=== PATIENT | female | born 1960 | race Caucasian/White ===

== ENCOUNTER 2016-05-05 15:10 | Emergency (ER) | payer MEDICARE, OTHER ==
[~2016-05-05] VITALS: Ht 147.3 cm; Wt 57.5 kg
[~2016-05-05 15:10] MED LIST: BUTA1CAP PO; CLON0.2T PO; DEPA500T3 PO; HYDR10TA23 PO; LISI40TA PO; METO25TA3 PO; TEGR200T PO
[2016-05-05 15:12] VITALS: BP 188/109; PULSE 119; RESP 18; TEMP 97.8; O2SAT 97
[2016-05-05] MEDS ORDERED: HYDR-3535 PO (15:46)
[2016-05-05] MEDS ORDERED: SODIUM CHLOR 0.9% 1000 ML INJ 1,000 ML IV ONE (15:50)
[2016-05-05 15:54] VITALS: RESP 20; O2SAT 97
--- NOTE | 2016-05-05 15:56 | PD ---
HPI Chief Complaint: Headache Time Seen by Provider: 15:45 Travel History International Travel<30 days: No Contact w/Intl Traveler<30days: No Traveled to known affect area: No History of Present Illness HPI The patient is a 55-year-old female who presents to the emergency department for migraine. The patient has a history of migraines, states she developed right sided headache several days ago. The headache is located in the right side, throbbing, radiates to the right aspect of the neck, and is associated with nausea, vomiting, photophobia, and phonophobia. The patient states this is typical of her migraines. The patient is followed by her primary physician, Dr. Quevedo, for her migraines and takes Lortab on a regular basis. However, the patient ran out of Lortab and her headache progressed. The patient denies any thunderclap quality to the headache and denies any posterior neck pain or stiffness. The patient states she feels "warm", however , denies any fever, chills, or sweats. The patient denies any ocular difficulties besides photophobia. She denies any blurry vision or diplopia. PFSH Past Medical History Anemia: Yes Arthritis: Yes (HANDS) Autoimmune Disease: No Heart Rhythm Problems: No Cancer: No Cardiovascular Problems: Yes (HTN) High Cholesterol: Yes Chest Pain: No Congestive Heart Failure: No Cerebrovascular Accident: No Diminished Hearing: No Endocrine: No Gastrointestinal Disorders: Yes (Hernia repair ) GERD: Yes Genitourinary: No Headaches: Yes Hiatal Hernia: Yes Hypertension: Yes Immune Disorder: No Implanted Vascular Access Dvce: No Musculoskeletal: Yes Neurologic: Yes Psychiatric: No Reproductive: No Respiratory: No Immunizations Current: No Migraines: Yes Pneumonia: Yes Seizures: Yes Ulcer: Yes (3 STOMACH ULCERS) Tetanus Vaccination: > 5 Years PNEUMOCCOCAL Vaccine (Year): 2010 ?: Not Menopausal: Yes : 1 Para: 1 Tubal Ligation: Yes Past Surgical History Abdominal Surgery: Yes ( LEFT INGUINAL HERNIA REPAIR) Appendectomy: Yes Cardiac Surgery: No Section: Yes (x 1) Ear Surgery: No Endocrine Surgery: No Eye Surgery: No Genitourinary Surgery: No Gynecologic Surgery: Yes () Neurologic Surgery: No Oral Surgery: No Pacemaker: No Thoracic Surgery: No Other Surgery: Yes (appendix,,) Social History Alcohol Use: No Tobacco Use: No Substance Use: No Allergies-Medications (Allergen,Severity, Reaction): Coded Allergies: Imitrex (Verified Allergy, Severe, HIVES, 05/05/16) Toradol (Verified Allergy, Severe, HIVES, 05/05/16) Aspirin (Verified Allergy, Mild, AGGRAVATES ULCERS, 05/05/16) Reported Meds & Prescriptions Reported Meds & Active Scripts Active Tegretol (Carbamazepine) 200 Mg Tab 200 Mg PO BID Fioricet (Mdvdjctent-Atcjxoireodnf-Ysgndknl) 50-300-40 Mg Cap 1 Cap PO Q4H PRN Reported Lortab (Hydrocodone-Acetaminophen) 10-325 Mg Tab 1 Tab PO Q6H PRN Depakote ER (Divalproex Sodium) 500 Mg Khalif 500 Mg PO TID Lisinopril 40 Mg Tab 40 Mg PO HS Metoprolol Tartrate 25 Mg Tab 25 Mg PO BID Hydralazine (Hydralazine HCl) 10 Mg Tab 10 Mg PO Q6HR Take with a meal Clonidine (Clonidine HCl) 0.2 Mg Tab 0.2 Mg PO BID Review of Systems Except as stated in HPI: all other systems reviewed are Neg General / Constitutional: No: Fever Eyes: Positive: Photophobia, No: Blurred Vision HENT: Positive: Headaches, Neck Pain (headache that radiates to the right aspect of the neck, denies any posterior neck pain) Cardiovascular: No: Chest Pain or Discomfort Respiratory: No: Shortness of Breath Gastrointestinal: Positive: Nausea, Vomiting Musculoskeletal: No: Weakness Neurologic: Positive: Headache, No: Dizziness, Change in Mentation, Paresthesia, Sensory Disturbance Physical Exam Narrative GENERAL: Awake, alert, pleasant 55-year-old female who appears her stated age and is in no acute respiratory distress. SKIN: Warm and dry. HEAD: Pending hairline noted. EYES: Pupils equal and round. Pupils are 4 mm bilateral and reactive. ENT: No nasal bleeding or discharge. Mucous membranes pink and moist. NECK: Trachea midline. No JVD. CARDIOVASCULAR: Regular, tachycardic with a heart rate of 105. RESPIRATORY: No accessory muscle use. Clear to auscultation. Breath sounds equal bilaterally. GASTROINTESTINAL: Abdomen soft, non-tender, nondistended. No rebound tenderness. MUSCULOSKELETAL: No obvious deformities. No clubbing. No cyanosis. No edema. NEUROLOGICAL: Awake and alert. No obvious cranial nerve deficits. Motor grossly within normal limits. Normal speech. Nonfocal. Oriented 4. Follows commands without difficulty. PSYCHIATRIC: Appropriate mood and affect; insight and judgment normal. Data Data Last Documented VS Vital Signs Date Time Temp Pulse Resp B/P Pulse Ox O2 Delivery O2 Flow Rate FiO2 05/05/16 15:54 20 97 Room Air 05/05/16 15:12 97.8 119 188/109 Orders Ecg Monitoring (05/05/16 15:50) Iv Access Insert/Monitor (05/05/16 15:50) Oximetry (05/05/16 15:50) Sodium Chloride 0.9% Flush (Ns Flush) (05/05/16 16:00) Prochlorperazine Inj (Compazine Inj) (05/05/16 16:00) Diphenhydramine Inj (Benadryl Inj) (05/05/16 16:00) Sodium Chlor 0.9% 1000 Ml Inj (Ns 1000 M (05/05/16 15:50) Morphine Inj (Morphine Inj) (05/05/16 16:00) Valproic Acid (Depakene) (05/05/16 15:50) Methylprednisolone So Succ Inj (Solumedr (05/05/16 16:00) Labetalol Inj (Trandate Inj) (05/05/16 17:00) Hydromorphone Pf Inj (Dilaudid Pf Inj) (05/05/16 17:00) Labs Laboratory Tests Test 05/05/16 16:08 Valproic Acid (Depakene) Level 46 MCG/ML MDM Medical Decision Making Medical Screen Exam Complete: Yes Emergency Medical Condition: Yes Medical Record Reviewed: Yes Interpretation(s) Laboratory Tests Test 05/05/16 16:08 Valproic Acid (Depakene) Level 46 MCG/ML Differential Diagnosis Differential diagnosis includes migraine, tension headache, cluster headache, glaucoma, intracranial hemorrhage, subarachnoid hemorrhage, intracranial tumor, sinusitis, temporal arteritis. Narrative Course IV was established, labs were drawn and sent, and the patient was placed on cardiac telemetry monitoring and continuous pulse oximetry monitoring. The patient was administered Solu-Medrol, Compazine, Benadryl, morphine, Solu-Medrol , and IV fluids. I reviewed the patient's EMR, she had a recent hospitalization and underwent brain MRI which revealed a chronic-appearing collates cyst within the ventricle, cortical atrophy, but no acute findings. The patient has also had multiple CTs in the brain which revealed chronic findings, but no acute hemorrhage. The patient is nonfocal on exam and states that this is her normal migraine headache. Therefore, no further imaging was performed. Depakote level was sent to lab. Depakote level is 46. The patient was reevaluated at 4:49 PM. The patient continued to complain of moderate headache, therefore, was redosed with Dilaudid and labetalol. The patient was reassessed at 5:50 PM, her headache and mostly resolved. Patient be discharged home with limited Lortab is advised to follow-up with her primary physician. She is advised to try to take medications to prevent migraines and to avoid narcotics if possible. Return if symptoms worsen or progress. Diagnosis Primary Impression: Chronic headaches Qualified Code: R51 - Chronic nonintractable headache, unspecified headache type Patient Instructions: General Instructions Additional Instructions: Follow-up with your primary physician. You may benefit from neurology evaluation. Return if symptoms worsen or progress. Med/Other Pt SpecificInfo: Prescription(s) given Scripts Hydrocodone-Acetaminophen ([place])5-325 mg Tab1 Tab PO Q6H PRN (PAIN) #15 TAB Ref 0 Prov:Marcus Joshi MD 05/05/16 Disposition: 01 DISCHARGE HOME Condition: Stable Marcus Joshi MD May 05, 2016 15:56
[2016-05-05 16:00] VITALS: BP 218/129; PULSE 104; RESP 18; O2SAT 99
[2016-05-05] MEDS ORDERED: MORPHINE SULFATE 4 MG/ML INJ IV PUSH ONE (16:00)
[2016-05-05] MEDS ORDERED: diphenhydrAMINE HCL 50 MG/ML VIAL IVP ONE (16:00)
[2016-05-05] MEDS ORDERED: SODIUM CHLORIDE 0.9% FLUSH 5 ML FLUSH IVF PRN (16:00)
[2016-05-05] MEDS ORDERED: methylPREDNISolone SOD SUCC 125 MG/2 ML VIAL IV PUSH ONE (16:00)
[2016-05-05] MEDS ORDERED: PROCHLORPERAZINE INJ 10 MG/2 ML VIAL IVP ONE (16:00)
[2016-05-05 17:00] VITALS: BP 173/90; PULSE 104; RESP 18; O2SAT 98
[2016-05-05] MEDS ORDERED: LABETALOL HCL 100 MG/20 ML VIAL IV PUSH ONE (17:00)
[2016-05-05] MEDS ORDERED: HYDROmorphone HCL PF 1 MG/ML VIAL IV PUSH ONE (17:00)
[2016-05-05] MEDS ORDERED: NORC5TAB PO (17:48)
[2016-05-05 18:00] VITALS: BP 127/97; PULSE 86; RESP 18; O2SAT 98
== END 2016-05-05 19:45 | disposition home or self-care (01) ==
LOC: NEPE 15:10
DX: R51 Headache (principal)
CPT/HCPCS: 80164; 96374; 96375; 99283; J0780; J1170; J1200; J2270; J2930; J7030

== ENCOUNTER 2016-06-17 07:12 | Emergency (ER) | payer MEDICARE, OTHER ==
[~2016-06-17] VITALS: Ht 162.6 cm; Wt 70.0 kg
[~2016-06-17 07:12] MED LIST changes: +HYDR-3535 PO; +NORC5TAB PO
[2016-06-17 07:15] VITALS: BP 134/70; PULSE 110; RESP 15; TEMP 98.4; O2SAT 98
[2016-06-17] MEDS ORDERED: HYDR10TA23 PO (07:44)
[2016-06-17] MEDS ORDERED: CLON0.2T PO (07:44)
[2016-06-17] MEDS ORDERED: DEPA500T PO (07:44)
[2016-06-17] MEDS ORDERED: TEGR200T PO (07:44)
[2016-06-17] MEDS ORDERED: AMLO10TA2 PO (07:44)
[2016-06-17] MEDS ORDERED: OMEP40CA2 PO (07:44)
[2016-06-17] MEDS ORDERED: SODIUM CHLOR 0.9% 1000 ML INJ 1,000 ML IV ONE (08:21)
--- NOTE | 2016-06-17 08:24 | PD ---
HPI Chief Complaint: ENT Complaint Time Seen by Provider: 08:24 Travel History International Travel<30 days: No Contact w/Intl Traveler<30days: No Traveled to known affect area: No History of Present Illness HPI 55-year-old female presents to the emergency department for evaluation of bilateral hearing loss this started 1 week ago. Patient also reports headache. She does have a history of chronic migraine headaches and has been seen on many occasions for this. Patient states his headache is slightly different and is in a different location. She states her headaches are typically behind her right eye. However, this headache is slightly higher in the right forehead and radiates to the back of the head. Patient states she has photophobia, phonophobia. She states she vomited 3 times yesterday. No vomiting today. Patient states that the hearing losses bilateral. Both are equal and hearing loss. She states she did not have any hearing loss prior to one week ago. Patient had MRI of the brain with and without contrast done in February 2016. Patient had no acute intracranial abnormality, small foci of abnormal signal involving the periventricular white matter. This could relate to chronic small vessel ischemic change however cannot exclude a demyelinating process such as multiple sclerosis, changes are stable. Small stable intraventricular mass involving the left lateral ventricle. 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 Patient denies any weakness or syncope. She reports mild fatigue. No chest pain or shortness of breath. No abdominal pain. No other complaints. Patient does have history of seizures and is currently on Depakote. Patient does state that she has been off her Lortab for headaches for approximately 3 months. Her headaches have been worsening since then. PFSH Past Medical History Anemia: Yes Arthritis: Yes Autoimmune Disease: No Heart Rhythm Problems: No Cancer: No Cardiovascular Problems: Yes (HTN) High Cholesterol: Yes Chest Pain: No Congestive Heart Failure: No Cerebrovascular Accident: No Diminished Hearing: No Endocrine: No Gastrointestinal Disorders: Yes (Hernia repair ) GERD: Yes Genitourinary: No Headaches: Yes Hiatal Hernia: Yes Hypertension: Yes Immune Disorder: No Implanted Vascular Access Dvce: No Musculoskeletal: Yes Neurologic: Yes Psychiatric: No Reproductive: No Respiratory: No Immunizations Current: No Migraines: Yes Pneumonia: Yes Seizures: Yes Ulcer: Yes Tetanus Vaccination: > 5 Years Influenza Vaccination: No PNEUMOCCOCAL Vaccine (Year): 2010 ?: Not Menopausal: Yes : 1 Para: 1 Tubal Ligation: Yes Past Surgical History Abdominal Surgery: Yes ( LEFT INGUINAL HERNIA REPAIR) Appendectomy: Yes Cardiac Surgery: No Section: Yes (x 1) Ear Surgery: No Endocrine Surgery: No Eye Surgery: No Genitourinary Surgery: No Gynecologic Surgery: Yes () Neurologic Surgery: No Oral Surgery: No Pacemaker: No Thoracic Surgery: No Other Surgery: Yes (appendix,,) Social History Alcohol Use: No Tobacco Use: No Substance Use: No Allergies-Medications (Allergen,Severity, Reaction): Coded Allergies: Imitrex (Verified Allergy, Severe, HIVES, 06/17/16) Toradol (Verified Allergy, Severe, HIVES, 06/17/16) Aspirin (Verified Allergy, Mild, AGGRAVATES ULCERS, 06/17/16) Reported Meds & Prescriptions Reported Meds & Active Scripts Active Reported Depakote DR (Divalproex Sodium) 500 Mg Tabdr 500 Mg PO TID Hydralazine (Hydralazine HCl) 10 Mg Tab 10 Mg PO QID Take with a meal Amlodipine (Amlodipine Besylate) 10 Mg Tab 10 Mg PO DAILY Clonidine (Clonidine HCl) 0.2 Mg Tab 0.2 Mg PO BID Omeprazole 40 Mg Cap 40 Mg PO DAILY Tegretol (Carbamazepine) 200 Mg Tab 200 Mg PO TID Review of Systems Except as stated in HPI: all other systems reviewed are Neg Physical Exam Narrative GENERAL: Well-nourished, well-developed female patient, afebrile. SKIN: Focused skin assessment warm/dry. HEAD: Normocephalic. Atraumatic. EYES: No scleral icterus. No injection or drainage. PERRLA. EOM intact. ENT: Mucosa pink and moist. No erythema or exudates. No uvular edema. No uvular , palatal, or tonsillar deviation. Airway patent. Nasal turbinates appear normal without nasal blood, purulent drainage or septal hematoma. Bilateral tympanic membranes are clear without erythema or perforation. NECK: Supple, trachea midline. No JVD or lymphadenopathy. CARDIOVASCULAR: Regular rate and rhythm without murmurs, gallops, or rubs. RESPIRATORY: Breath sounds equal bilaterally. No accessory muscle use. Lungs sounds are clear to auscultation. GASTROINTESTINAL: Abdomen soft, non-tender, nondistended. MUSCULOSKELETAL: No cyanosis, or edema. Bilateral upper and lower extremity strength 5/5. All extremities are neurovascularly intact. BACK: Nontender without obvious deformity. No CVA tenderness. NEUROLOGICAL: Awake and alert. Cranial nerves II through XII intact. Motor and sensory grossly within normal limits. Five out of 5 muscle strength in all muscle groups. Normal speech. Finger to nose is normal bilaterally. Heel-to- gastelum is normal bilaterally. Data Data Last Documented VS Vital Signs Date Time Temp Pulse Resp B/P Pulse Ox O2 Delivery O2 Flow Rate FiO2 06/17/16 09:39 97 06/17/16 07:15 98.4 15 134/70 98 Orders Iv Access Insert/Monitor (06/17/16 08:21) Prochlorperazine Inj (Compazine Inj) (06/17/16 08:30) Diphenhydramine Inj (Benadryl Inj) (06/17/16 08:30) Sodium Chlor 0.9% 1000 Ml Inj (Ns 1000 M (06/17/16 08:21) Basic Metabolic Panel (Bmp) (06/17/16 08:41) Mri Brain W&W/O Contrast (06/17/16 ) Valproic Acid (Depakene) (06/17/16 08:50) Gadodiamide Pf Inj (Omniscan Pf Inj) (06/17/16 10:44) Labs Laboratory Tests Test 06/17/16 08:50 Sodium Level 139 MEQ/L Potassium Level 3.9 MEQ/L Chloride Level 108 MEQ/L Carbon Dioxide Level 20.8 MEQ/L Anion Gap 10 MEQ/L Blood Urea Nitrogen 15 MG/DL Creatinine 0.87 MG/DL Estimat Glomerular Filtration 68 ML/MIN Rate Random Glucose 104 MG/DL Calcium Level 8.8 MG/DL Valproic Acid (Depakene) Level 39 MCG/ML [facility] Medical Decision Making Medical Screen Exam Complete: Yes Emergency Medical Condition: Yes Medical Record Reviewed: Yes Interpretation(s) MRI brain w/wo contrast - CONCLUSION: Abnormal MRI, stable from 03/07/16. White matter changes are suspicious for demyelinating process. Correlation is suggested. I do not restricted diffusion evident. There is an intraventricular mass on the left, stable in size measuring approximately 9 mm. Stable minimal mastoid disease. Differential Diagnosis Conductive hearing loss versus Mnire's disease versus autoimmune disease versus mass conductive hearing loss Narrative Course This is a 55-year-old female who comes in complaining of bilateral hearing loss for one week and headache for 3 weeks. I discussed this case with my attending physician, Dr. Joshi. Neurological exam shows no focal deficits. BMP, Depakote level are ordered and pending. MRI of the brain with and without contrast is ordered and pending. IV access established. Patient is given normal saline 1 L IV bolus, Compazine 10 mg IV, Benadryl 50 mg IV. BMP shows no acute abnormality. Depakote level is 39. MRI of the brain with and without contrast shows abnormal MRI, stable from 03/07/16. White matter changes are suspicious for demyelinating process. Correlation is suggested. I do not restricted diffusion evident.; there is an intraventricular mass on the left, stable in size measuring approximately 9 mm; Stable minimal mastoid disease. I discussed the results of the MRI with the neurologist on-call, Dr. Dubon. He does not believe that this is due to a neurological problem at this point. He would like the patient to follow-up with earand throat first. Then if needed, he will like the patient to follow with neurology. The patient verbalizes agreement and understanding to this plan. She is to return for any acute worsening of symptoms. Diagnosis Primary Impression: Bilateral hearing loss Qualified Code: H91.93 - Bilateral hearing loss, unspecified hearing loss type Additional Impression: Chronic headaches Qualified Code: R51 - Chronic nonintractable headache, unspecified headache type Referrals: Ear / Nose / Throat Specialist Neurologist Patient Instructions: General Instructions, Hearing Loss (ED), Migraine Headache (ED) Additional Instructions: Follow-up with an ear, nose, and throat physician. Follow-up with neurology. Follow-up with your primary care physician. Return to the emergency department for any acute worsening of symptoms. Med/Other Pt SpecificInfo: No Change to Meds Disposition: 01 DISCHARGE HOME Condition: Stable Tanya Wilkerson JAREK Jun 17, 2016 08:24
[2016-06-17] MEDS ORDERED: PROCHLORPERAZINE INJ 10 MG/2 ML VIAL IVP ONE (08:30)
[2016-06-17] MEDS ORDERED: diphenhydrAMINE HCL 50 MG/ML VIAL IVP ONE (08:30)
[2016-06-17 09:39] VITALS: PULSE 97
[2016-06-17 09:43] LABS: BICARBONATE 20.8 MEQ/L (21.0-32.0); POTASSIUM 3.9 MEQ/L (3.5-5.1)
[2016-06-17] MEDS ORDERED: GADODIAMIDE PF 287 MG/ML 5 ML VIAL (for RAD MRI) IV PUSH ONE (10:44)
--- NOTE | 2016-06-17 11:38 | RADRPT ---
EXAM DATE/TIME: 06/17/2016 10:21 [facility] COMPARISON: MRI BRAIN W & W/O CONTRAST, March 07, 2016, 10:51. INDICATIONS : Mass. Bilateral hearing loss. CONTRAST: 13 cc Omniscan (gadodiamide) IV MEDICAL HISTORY : Seizures. Hypertension. Headaches. SURGICAL HISTORY : Appendectomy. section. Inguinal hernia repair. ENCOUNTER: Initial ACUITY: 1 day PAIN SCORE: 7/10 LOCATION: Bilateral cranial TECHNIQUE: Multiplanar, multisequence MRI of the brain was performed both prior to and following the administrat ion of paramagnetic contrast. FINDINGS: There are scattered periventricular white matter changes evident. These are scattered in the white m atter in a nonspecific fashion, however they are a little concerning for a demyelinating process. Intraventricular mass is again noted on the left. There is no restricted diffusion evident. Following intravenous administration of gadolinium there is no abnormal contrast enhancement. The in traventricular mass on the left does not enhance suggesting this well may be a colloid cyst as descri bed previously. The posterior fossa is unremarkable. The seventh and eighth nerves are well visualized. Mastoids ar e normal. CONCLUSION: Abnormal MRI, stable from 03/07/16. White matter changes are suspicious for demyelinating process. Correlation is suggested. I do not restricted diffusion evident. There is an intraventricular mass on the left, stable in size measuring approximately 9 mm. Stable minimal mastoid disease. Kulwinder Agee MD FACR on June 17, 2016 at 11:22 Board Certified Radiologist. This report was verified electronically.
[2016-06-17 13:16] VITALS: BP 138/93; PULSE 94; RESP 17; O2SAT 94
== END 2016-06-17 13:17 | disposition home or self-care (01) ==
LOC: NEPB 07:12
DX: H91.93 Unspecified hearing loss, bilateral (principal); R51 Headache; I10 Essential (primary) hypertension; E78.00 Pure hypercholesterolemia, unspecified; D64.9 Anemia, unspecified
CPT/HCPCS: 70553; 80048; 80164; 96361; 96374; 96375; 99284; A9579; J0780; J1200; J7030

== ENCOUNTER 2016-08-05 14:41 | Emergency (ER) | payer MEDICARE, OTHER ==
[~2016-08-05] VITALS: Ht 162.6 cm; Wt 70.0 kg
[~2016-08-05 14:41] MED LIST changes: +AMLO10TA2 PO; -BUTA1CAP PO; +DEPA500T PO; -DEPA500T3 PO; -HYDR-3535 PO; -LISI40TA PO; -METO25TA3 PO; -NORC5TAB PO; +OMEP40CA2 PO
[2016-08-05 15:05] VITALS: BP 160/102; PULSE 125; RESP 18; TEMP 97.6; O2SAT 98
--- NOTE | 2016-08-05 15:26 | PD ---
HPI Chief Complaint: GI Complaint Time Seen by Provider: 15:24 Travel History International Travel<30 days: No Contact w/Intl Traveler<30days: No History of Present Illness HPI 55 year old female with PMH of HTN, PUD presents to the ED via EMS for evaluation of 4 day history of right-sided flank and abdominal pain. Gradual onset. Patient states that the pain began in the right side of the back before moving to the right abdomen. Described as constant, rated 10/10. She denies fevers, chills, nausea, vomiting, changes in bowel habits, melena, hematochezia , dysuria. She was able to take her daily medications today. Endorses history of appendectomy. PFSH Past Medical History Anemia: Yes Arthritis: Yes Autoimmune Disease: No Heart Rhythm Problems: No Cancer: No Cardiovascular Problems: Yes (HTN) High Cholesterol: Yes Chest Pain: No Congestive Heart Failure: No Cerebrovascular Accident: No Diminished Hearing: No Endocrine: No Gastrointestinal Disorders: Yes (Hernia repair ) GERD: Yes Genitourinary: No Headaches: Yes Hiatal Hernia: Yes Hypertension: Yes Immune Disorder: No Implanted Vascular Access Dvce: No Musculoskeletal: Yes Neurologic: Yes Psychiatric: No Reproductive: No Respiratory: No Immunizations Current: No Migraines: Yes Pneumonia: Yes Seizures: Yes Ulcer: Yes PNEUMOCCOCAL Vaccine (Year): 2010 Menopausal: Yes : 1 Para: 1 Tubal Ligation: Yes Past Surgical History Abdominal Surgery: Yes ( LEFT INGUINAL HERNIA REPAIR) Appendectomy: Yes Cardiac Surgery: No Section: Yes (x 1) Ear Surgery: No Endocrine Surgery: No Eye Surgery: No Genitourinary Surgery: No Gynecologic Surgery: Yes () Neurologic Surgery: No Oral Surgery: No Pacemaker: No Thoracic Surgery: No Other Surgery: Yes (appendix,,) Social History Alcohol Use: No Tobacco Use: No Substance Use: No Allergies-Medications (Allergen,Severity, Reaction): Coded Allergies: Imitrex (Verified Allergy, Severe, HIVES, 06/17/16) Toradol (Verified Allergy, Severe, HIVES, 06/17/16) Aspirin (Verified Allergy, Mild, AGGRAVATES ULCERS, 06/17/16) Reported Meds & Prescriptions Reported Meds & Active Scripts Active Metoprolol Tartrate 25 Mg Tab 25 Mg PO DAILY Reported Depakote DR (Divalproex Sodium) 500 Mg Tabdr 500 Mg PO TID Hydralazine (Hydralazine HCl) 10 Mg Tab 10 Mg PO QID Take with a meal Amlodipine (Amlodipine Besylate) 10 Mg Tab 10 Mg PO DAILY Clonidine (Clonidine HCl) 0.2 Mg Tab 0.2 Mg PO BID Omeprazole 40 Mg Cap 40 Mg PO DAILY Tegretol (Carbamazepine) 200 Mg Tab 200 Mg PO TID Review of Systems Except as stated in HPI: all other systems reviewed are Neg Physical Exam Narrative GENERAL: Well-nourished, well-developed white female in no acute distress. SKIN: Focused skin assessment warm/dry. HEAD: Normocephalic. EYES: No scleral icterus. No injection or drainage. NECK: Supple, trachea midline. No JVD or lymphadenopathy. CARDIOVASCULAR: Regular rate and rhythm without murmurs, gallops, or rubs. RESPIRATORY: Breath sounds clear and equal bilaterally. No accessory muscle use. GASTROINTESTINAL: Abdomen soft, nondistended, TTP in the right flank, RUQ and bilateral lower quadrants. Hypoactive bowel sounds. No palpable masses. MUSCULOSKELETAL: No cyanosis, or edema. BACK: Nontender without obvious deformity. No CVA tenderness. Data Data Last Documented VS Vital Signs Date Time Temp Pulse Resp B/P Pulse Ox O2 Delivery O2 Flow Rate FiO2 08/05/16 22:00 105 20 149/88 97 Room Air 08/05/16 15:05 97.6 Orders Complete Blood Count With Diff (08/05/16 15:32) Comprehensive Metabolic Panel (08/05/16 15:32) Lipase (08/05/16 15:32) Lactic Acid (08/05/16 15:32) Prothrombin Time / Inr (Pt) (08/05/16 15:32) Act Partial Throm Time (Ptt) (08/05/16 15:32) Urinalysis - C+S If Indicated (08/05/16 15:32) Ct Abd/Pel W Iv Contrast(Rout) (08/05/16 15:32) Iv Access Insert/Monitor (08/05/16 15:32) Ecg Monitoring (08/05/16 15:32) Oximetry (08/05/16 15:32) NPO (08/05/16 15:32) Morphine Inj (Morphine Inj) (08/05/16 15:45) Ondansetron Inj (Zofran Inj) (08/05/16 15:45) Sodium Chlor 0.9% 1000 Ml Inj (Ns 1000 M (08/05/16 15:32) Sodium Chloride 0.9% Flush (Ns Flush) (08/05/16 15:45) Ed Urine Pregnancytest Poc (08/05/16 15:32) Morphine Inj (Morphine Inj) (08/05/16 17:30) Vascular Access Team Consult/P PRN (08/05/16 18:39) Vascular Poc Ultrasound (08/05/16 ) Iohexol 350 Inj (Omnipaque 350 Inj) (08/05/16 20:02) Morphine Inj (Morphine Inj) (08/05/16 21:15) Clonidine (Catapres) (08/05/16 21:30) Metoprolol Tartrate (Lopressor) (08/05/16 23:00) Labs Laboratory Tests Test 08/05/16 08/05/16 08/05/16 15:30 15:50 19:10 White Blood Count 9.7 TH/MM3 Red Blood Count 3.97 MIL/MM3 Hemoglobin 12.0 GM/DL Hematocrit 35.2 % Mean Corpuscular Volume 88.7 FL Mean Corpuscular Hemoglobin 30.1 PG Mean Corpuscular Hemoglobin 33.9 % Concent Red Cell Distribution Width 13.3 % Platelet Count 216 TH/MM3 Mean Platelet Volume 11.2 FL Neutrophils (%) (Auto) 84.9 % Lymphocytes (%) (Auto) 8.4 % Monocytes (%) (Auto) 6.0 % Eosinophils (%) (Auto) 0.3 % Basophils (%) (Auto) 0.4 % Neutrophils # (Auto) 8.2 TH/MM3 Lymphocytes # (Auto) 0.8 TH/MM3 Monocytes # (Auto) 0.6 TH/MM3 Eosinophils # (Auto) 0.0 TH/MM3 Basophils # (Auto) 0.0 TH/MM3 CBC Comment DIFF FINAL Differential Comment Prothrombin Time 10.9 SEC Prothromb Time International 1.0 RATIO Ratio Activated Partial 34.2 SEC Thromboplast Time Sodium Level 139 MEQ/L Potassium Level 3.9 MEQ/L Chloride Level 106 MEQ/L Carbon Dioxide Level 23.9 MEQ/L Anion Gap 9 MEQ/L Blood Urea Nitrogen 10 MG/DL Creatinine 0.73 MG/DL Estimat Glomerular Filtration 83 ML/MIN Rate Random Glucose 127 MG/DL Calcium Level 9.8 MG/DL Total Bilirubin 0.3 MG/DL Aspartate Amino Transf 22 U/L (AST/SGOT) Alanine Aminotransferase 16 U/L (ALT/SGPT) Alkaline Phosphatase 125 U/L Total Protein 8.3 GM/DL Albumin 3.9 GM/DL Lipase 67 U/L Lactic Acid Level 1.4 mmol/L Urine Color YELLOW Urine Turbidity CLEAR Urine pH 6.0 Urine Specific [place] 1.049 Urine Protein TRACE mg/dL Urine Glucose (UA) NEG mg/dL Urine Ketones 10 mg/dL Urine Occult Blood NEG Urine Nitrite NEG Urine Bilirubin NEG Urine Urobilinogen LESS THAN 2.0 MG/DL Urine Leukocyte Esterase NEG Urine WBC 1 /hpf Urine Squamous Epithelial <1 /hpf Cells Microscopic Urinalysis Comment CULT NOT INDICATED MDM Medical Decision Making Medical Screen Exam Complete: Yes Emergency Medical Condition: Yes Differential Diagnosis Cholecystitis versus pancreatitis versus diverticulitis versus bowel instruction versus nephroureterolithiasis versus UTI versus other Narrative Course 55 year old female with PMH of HTN, PUD presents to the ED via EMS for evaluation of 4 day history of right-sided flank and abdominal pain. Gradual onset. Patient states that the pain began in the right side of the back before moving to the right abdomen. Constant, rated 10/10. She denies fevers, chills , nausea, vomiting, changes in bowel habits, melena, hematochezia, dysuria. History of appendectomy. Patient afebrile, BP 160/102, heart rate 125, RR18 on presentation. Physical exam reveals a nontoxic-appearing white female in no acute distress. There is tenderness to palpation in the right flank, right upper quadrant and bilateral lower quadrants. Hypoactive bowel sounds. IV was established. Patient was placed on continuous monitoring. She was administered a liter of IV fluids, 4 mg Zofran, 6 mg morphine IV. CBC: WBC 9.7, hemoglobin 12.0. Coags: INR 1.0. CMP: Alkaline phosphatase 125 Lipase: 67 Lactic: 1.4 UA: No culture indicated. CT: Distended gallbladder, otherwise unremarkable abdomen. On recheck the patient still complaining of abdominal pain, pulse 117 despite fluids. Discussed the case with Dr. Hernández. Patient was administered her evening dose of clonidine. Disposition per Dr. Hernández. Sepsis Criteria SIRS Criteria (2 or more): Heart rate over 90 Scripts Metoprolol Tartrate 25 Mg Tab25 Mg PO DAILY #30 TAB Ref 0 Prov:Rogelio Hernández MD 08/05/16 Christine Tran August 05, 2016 15:25
[2016-08-05 15:30] VITALS: BP 181/95; PULSE 122; RESP 20; O2SAT 98
[2016-08-05] MEDS ORDERED: SODIUM CHLOR 0.9% 1000 ML INJ 1,000 ML IV SCH (15:32)
[2016-08-05 15:37] VITALS: RESP 20; O2SAT 98
[2016-08-05] MEDS ORDERED: ONDANSETRON HCL 4 MG/2 ML VIAL IVP ONE (15:45)
[2016-08-05] MEDS ORDERED: MORPHINE SULFATE 4 MG/ML INJ IV PUSH ONE ×3 (15:45→21:15)
[2016-08-05] MEDS ORDERED: SODIUM CHLORIDE 0.9% FLUSH 10 ML FLUSH IV FLUSH PRN (15:45)
[2016-08-05 16:15] LABS: APTT (PATIENT) 34.2 SEC (24.3-30.1); AUTOMATED NEUTROPHIL # 8.2 TH/MM3 (1.8-7.7); BASOPHIL % 0.4 % (0.0-2.0); EOSINOPHIL % 0.3 % (0.0-4.0); HEMATOCRIT 35.2 % (35.0-46.0); HEMO FLAGS DIFF FINAL; LYMPH % 8.4 % (9.0-44.0); LYMPHOCYTE # 0.8 TH/MM3 (1.0-4.8); MEAN CELL VOLUME 88.7 FL (80.0-100.0); MEAN CORPUSCULAR HEMOGLOBIN 30.1 PG (27.0-34.0); MEAN CORPUSCULAR HGB CONC 33.9 % (32.0-36.0); NEUT % 84.9 % (16.0-70.0); PLATELET COUNT 216 TH/MM3 (150-450); PROTHROMBIN TIME - PATIENT 10.9 SEC (9.8-11.6); RED BLOOD COUNT 3.97 MIL/MM3 (4.00-5.30); RED CELL DISTRIBUTION WIDTH 13.3 % (11.6-17.2); WHITE BLOOD COUNT 9.7 TH/MM3 (4.0-11.0)
[2016-08-05 16:25] LABS: ALKALINE PHOSPHATASE 125 U/L (45-117); TOTAL BILIRUBIN ADULT 0.3 MG/DL (0.2-1.0)
[2016-08-05 16:26] LABS: ALT (GPT) 16 U/L (10-53); ANION GAP 9 MEQ/L (5-15); AST (GOT) 22 U/L (15-37); BICARBONATE 23.9 MEQ/L (21.0-32.0); BLOOD UREA NITROGEN 10 MG/DL (7-18); CHLORIDE 106 MEQ/L (98-107); GLOMERULAR FILTRATION RATE 83 ML/MIN (>89); POTASSIUM 3.9 MEQ/L (3.5-5.1); SODIUM (NA) 139 MEQ/L (136-145)
[2016-08-05 17:27] VITALS: BP 165/88; PULSE 120; RESP 18; O2SAT 98
[2016-08-05 19:33] LABS: BLOOD, URINE NEG (NEG); GLUCOSE,URINE NEG (NEG); KETONE, URINE 10 mg/dL (NEG); NITRITE,URINE NEG (NEG); SQUAMOUS EPITHELIAL CELL URINE <1 /hpf (0-5); URINE COLOR YELLOW (YELLW/STRAW)
[2016-08-05 19:40] LABS: COMMENT (UR) CULT NOT INDICATED; CULTURE IF INDICATED CULT NOT INDICATED
[2016-08-05] MEDS ORDERED: IOHEXOL 350 MG/ML 10 ML VIAL (for RAD DIAG) IV ONE (20:02)
--- NOTE | 2016-08-05 20:18 | RADRPT ---
EXAM DATE/TIME: 08/05/2016 17:44 [facility] COMPARISON: CT ABDOMEN & PELVIS W CONTRAST, January 19, 2016, 10:38. INDICATIONS : Right upper quadrant pain. IV CONTRAST: 95 cc Omnipaque 350 (iohexol) IV ORAL CONTRAST: No oral contrast ingested. RADIATION DOSE: 5.36 CTDIvol (mGy) MEDICAL HISTORY : Hypertension. Hernia, hiatal. Gastroesophageal reflux disease. SURGICAL HISTORY : Inguinal hernia repair. Tubal ligation.Appendectomy. ENCOUNTER: Initial ACUITY: 1 day PAIN SCALE: 5/10 LOCATION: Right upper quadrant TECHNIQUE: Volumetric scanning of the abdomen and pelvis was performed. Using automated exposure control and ad justment of the mA and/or kV according to patient size, radiation dose was kept as low as reasonably achievable to obtain optimal diagnostic quality images. FINDINGS: LOWER LUNGS: The visualized lower lungs are clear. LIVER: Homogeneous density without lesion. There is no dilation of the biliary tree. No calcified gallston es. Gallbladder is distended. SPLEEN: Normal size without lesion. PANCREAS: Within normal limits. KIDNEYS: Normal in size and shape. There is no mass, stone or hydronephrosis. ADRENAL GLANDS: Within normal limits. VASCULAR: There is no aortic aneurysm. BOWEL/MESENTERY: The stomach, small bowel, and colon demonstrate no acute abnormality. There is no free intraperitone al air or fluid. ABDOMINAL WALL: Within normal limits. RETROPERITONEUM: There is no lymphadenopathy. BLADDER: No wall thickening or mass. REPRODUCTIVE: Within normal limits. INGUINAL: There is no lymphadenopathy or hernia. MUSCULOSKELETAL: Within normal limits for patient age. CONCLUSION: 1. Distended gallbladder. 2. Otherwise unremarkable abdomen. Gavin Jones MD on August 05, 2016 at 20:14 Board Certified Radiologist. This report was verified electronically.
[2016-08-05 20:51] VITALS: BP 169/96; PULSE 117; RESP 20; O2SAT 97
[2016-08-05] MEDS ORDERED: cloNIDine HCL 0.2 MG TAB PO ONE (21:30)
[2016-08-05 22:00] VITALS: BP 149/88; PULSE 105; RESP 20; O2SAT 97
[2016-08-05] MEDS ORDERED: METO25TA3 PO (22:52)
--- NOTE | 2016-08-05 22:52 | PD ---
Physical Exam Date Seen by Provider: August 05, 2016 Time Seen by Provider: 22:48 Narrative 55-year-old female came in with abdominal pain. She was seen by the PA under previous ER physician supervision. The workup was ongoing when the case was assigned to me. Her blood work and CAT scan came back to be within acceptable limits. However the concern was persistent tachycardia. Patient has received 2 L of IV fluid bolus and year continued to be tachycardic. Before the PA left she had ordered patient's routine night med which was clonidine. Currently it has been an hour since she is received the medication and her resting blood pressure and heart rate has come down. Patient used to be on Lopressor and I discussed it with her and her the reason why she was taken off the medication. I have explained to her that she would benefit from being on the beta madeleine which would keep her heart rate under control. Patient is agreeable to this plan. She'll be discharged home with a prescription for Lopressor. She will get a dose of it before she leaves. Data Data Last Documented VS Vital Signs Date Time Temp Pulse Resp B/P Pulse Ox O2 Delivery O2 Flow Rate FiO2 08/05/16 22:00 105 20 149/88 97 Room Air 08/05/16 15:05 97.6 Orders Complete Blood Count With Diff (08/05/16 15:32) Comprehensive Metabolic Panel (08/05/16:32) Lipase (08/05/16 15:32) Lactic Acid (08/05/16 15:32) Prothrombin Time / Inr (Pt) (08/05/16 15:32) Act Partial Throm Time (Ptt) (08/05/16 15:32) Urinalysis - C+S If Indicated (08/05/16 15:32) Ct Abd/Pel W Iv Contrast(Rout) (08/05/16 15:32) Iv Access Insert/Monitor (08/05/16 15:32) Ecg Monitoring (08/05/16 15:32) Oximetry (08/05/16 15:32) NPO (08/05/16 15:32) Morphine Inj (Morphine Inj) (08/05/16 15:45) Ondansetron Inj (Zofran Inj) (08/05/16 15:45) Sodium Chlor 0.9% 1000 Ml Inj (Ns 1000 M (08/05/16 15:32) Sodium Chloride 0.9% Flush (Ns Flush) (08/05/16 15:45) Ed Urine Pregnancytest Poc (08/05/16 15:32) Morphine Inj (Morphine Inj) (08/05/16 17:30) Vascular Access Team Consult/P PRN (08/05/16 18:39) Vascular Poc Ultrasound (08/05/16 ) Iohexol 350 Inj (Omnipaque 350 Inj) (08/05/16 20:02) Morphine Inj (Morphine Inj) (08/05/16 21:15) Clonidine (Catapres) (08/05/16 21:30) Metoprolol Tartrate (Lopressor) (08/05/16 23:00) Labs Laboratory Tests Test 08/05/16 08/05/16 08/05/16 15:30 15:50 19:10 White Blood Count 9.7 TH/MM3 Red Blood Count 3.97 MIL/MM3 Hemoglobin 12.0 GM/DL Hematocrit 35.2 % Mean Corpuscular Volume 88.7 FL Mean Corpuscular Hemoglobin 30.1 PG Mean Corpuscular Hemoglobin 33.9 % Concent Red Cell Distribution Width 13.3 % Platelet Count 216 TH/MM3 Mean Platelet Volume 11.2 FL Neutrophils (%) (Auto) 84.9 % Lymphocytes (%) (Auto) 8.4 % Monocytes (%) (Auto) 6.0 % Eosinophils (%) (Auto) 0.3 % Basophils (%) (Auto) 0.4 % Neutrophils # (Auto) 8.2 TH/MM3 Lymphocytes # (Auto) 0.8 TH/MM3 Monocytes # (Auto) 0.6 TH/MM3 Eosinophils # (Auto) 0.0 TH/MM3 Basophils # (Auto) 0.0 TH/MM3 CBC Comment DIFF FINAL Differential Comment Prothrombin Time 10.9 SEC Prothromb Time International 1.0 RATIO Ratio Activated Partial 34.2 SEC Thromboplast Time Sodium Level 139 MEQ/L Potassium Level 3.9 MEQ/L Chloride Level 106 MEQ/L Carbon Dioxide Level 23.9 MEQ/L Anion Gap 9 MEQ/L Blood Urea Nitrogen 10 MG/DL Creatinine 0.73 MG/DL Estimat Glomerular Filtration 83 ML/MIN Rate Random Glucose 127 MG/DL Calcium Level 9.8 MG/DL Total Bilirubin 0.3 MG/DL Aspartate Amino Transf 22 U/L (AST/SGOT) Alanine Aminotransferase 16 U/L (ALT/SGPT) Alkaline Phosphatase 125 U/L Total Protein 8.3 GM/DL Albumin 3.9 GM/DL Lipase 67 U/L Lactic Acid Level 1.4 mmol/L Urine Color YELLOW Urine Turbidity CLEAR Urine pH 6.0 Urine Specific [place] 1.049 Urine Protein TRACE mg/dL Urine Glucose (UA) NEG mg/dL Urine Ketones 10 mg/dL Urine Occult Blood NEG Urine Nitrite NEG Urine Bilirubin NEG Urine Urobilinogen LESS THAN 2.0 MG/DL Urine Leukocyte Esterase NEG Urine WBC 1 /hpf Urine Squamous Epithelial <1 /hpf Cells Microscopic Urinalysis Comment CULT NOT INDICATED MDM Supervised Visit with NILAM: Yes Diagnosis Primary Impression: Abdominal pain Qualified Code: R10.9 - Abdominal pain, unspecified location Additional Impression: Tachycardia Referrals: Primary Care Physician 2 days Additional Instruction: Please return to the ER if the condition worsens or any other new concerns. Placed Ocusulf on this new medication and follow-up with your primary care in couple days. Med/Other Pt SpecificInfo: Prescription(s) given Scripts Metoprolol Tartrate 25 Mg Tab25 Mg PO DAILY #30 TAB Ref 0 Prov:Rogelio Hernández MD 08/05/16 Disposition: 01 DISCHARGE HOME Condition: Stable Rogelio Hernández MD August 05, 2016 22:52
[2016-08-05] MEDS ORDERED: METOPROLOL TARTRATE 25 MG TAB PO ONE (23:00)
== END 2016-08-05 23:00 | disposition home or self-care (01) ==
LOC: NEPD 14:41
DX: R10.9 Unspecified abdominal pain (principal); R00.0 Tachycardia, unspecified; I10 Essential (primary) hypertension
CPT/HCPCS: 74177; 80053; 81001; 83605; 83690; 84703; 85025; 85610; 85730; 96374; 96375; 96376; 99284; J2270; J2405; J7030; Q9967

== ENCOUNTER 2016-12-28 17:14 | Emergency (ER) | payer MEDICARE, OTHER ==
[~2016-12-28] VITALS: Ht 152.4 cm; Wt 60.0 kg
[~2016-12-28 17:14] MED LIST changes: +METO25TA3 PO
[2016-12-28 17:16] VITALS: PULSE 89; RESP 15; TEMP 98.4; O2SAT 97
[2016-12-28 18:05] VITALS: BP 176/92; PULSE 83; RESP 22; TEMP 97.5; O2SAT 99
[2016-12-28] MEDS ORDERED: VITA100021 PO (18:12)
[2016-12-28] MEDS ORDERED: HYDR-3799 PO (18:12)
--- NOTE | 2016-12-28 18:24 | PD ---
HPI Chief Complaint: Musculoskeletal Complaint Time Seen by Provider: 17:57 Travel History International Travel<30 days: No Contact w/Intl Traveler<30days: No Traveled to known affect area: No History of Present Illness HPI Patient is a 56-year-old female presents emergency department for evaluation of low back pain occasionally radiating down both her legs which is been gradually worsening over the past 3 months. Patient states that she was evaluated for this by her regular physician 6 months ago had an MRI which showed bulging disks. She is denying any urinary retention saddle anesthesia or saddle pain. States that currently her pain is fairly mild. She's been taking ibuprofen for it at home. She does have a history of seizure disorder as well as chronic kidney disease. She is denying any abdominal pain difficulty defecating, trauma , blood in the stool, difficulty urinating or painful urination. Symptoms are mild, gradually worsening over the past few months PFSH Past Medical History Anemia: Yes Arthritis: Yes Autoimmune Disease: No Heart Rhythm Problems: No Cancer: No Cardiovascular Problems: Yes (HTN) High Cholesterol: Yes Chest Pain: No Congestive Heart Failure: No Cerebrovascular Accident: No Diabetes: No Diminished Hearing: No Endocrine: No Gastrointestinal Disorders: Yes (Hernia repair ) GERD: Yes Genitourinary: No Headaches: Yes Hiatal Hernia: Yes Hypertension: Yes Immune Disorder: No Implanted Vascular Access Dvce: No Musculoskeletal: Yes Neurologic: Yes Psychiatric: No Reproductive: No Respiratory: No Immunizations Current: No Migraines: Yes Pneumonia: Yes Seizures: Yes Ulcer: Yes PNEUMOCCOCAL Vaccine (Year): 2010 ?: Not Menopausal: Yes : 1 Para: 1 Tubal Ligation: Yes Past Surgical History Abdominal Surgery: Yes ( LEFT INGUINAL HERNIA REPAIR) Appendectomy: Yes Cardiac Surgery: No Section: Yes (x 1) Ear Surgery: No Endocrine Surgery: No Eye Surgery: No Genitourinary Surgery: No Gynecologic Surgery: Yes () Neurologic Surgery: No Oral Surgery: No Pacemaker: No Thoracic Surgery: No Other Surgery: Yes (appendix,,) Social History Alcohol Use: No Tobacco Use: No Substance Use: No Allergies-Medications (Allergen,Severity, Reaction): Coded Allergies: ketorolac (Unverified Allergy, Severe, HIVES, 12/28/16) sumatriptan (Unverified Allergy, Severe, HIVES, 12/28/16) aspirin (Unverified Allergy, Mild, AGGRAVATES ULCERS, 12/28/16) Reported Meds & Prescriptions Reported Meds & Active Scripts Active Myrtle (Hydrocodone-Acetaminophen) 5-325 mg Tab 1 Tab PO Q6H PRN Prednisone 20 Mg Tab 60 Mg PO DAILY 5 Days Metoprolol Tartrate 25 Mg Tab 25 Mg PO DAILY Reported Vitamin B-12 (Cyanocobalamin) 1,000 Mcg Subl 50 Mcg PO BID Hydralazine HCl 25 Mg Tablet 10 Mg PO Q6HR Depakote DR (Divalproex Sodium) 500 Mg Tabdr 500 Mg PO TID Amlodipine (Amlodipine Besylate) 10 Mg Tab 10 Mg PO DAILY Clonidine (Clonidine HCl) 0.2 Mg Tab 0.2 Mg PO BID Tegretol (Carbamazepine) 200 Mg Tab 200 Mg PO TID Review of Systems Except as stated in HPI: all other systems reviewed are Neg Physical Exam Narrative GENERAL: Well-nourished, well-developed patient. SKIN: Focused skin assessment warm/dry. HEAD: Normocephalic. EYES: No scleral icterus. No injection or drainage. NECK: Supple, trachea midline. No JVD or lymphadenopathy. CARDIOVASCULAR: Regular rate and rhythm without murmurs, gallops, or rubs. RESPIRATORY: Breath sounds equal bilaterally. No accessory muscle use. GASTROINTESTINAL: Abdomen soft, non-tender, nondistended. MUSCULOSKELETAL: No cyanosis, or edema. No midline CT or L-spine tenderness. Full nontender range of motion present in all 4 extremities. Neurologic: Cranial nerves II through XII are grossly intact and nonfocal, 5 out of 5 strength in all 4 extremity's, DTRs are 2+ and bilaterally equal in lower extremities at patella and Achilles. Data Data Last Documented VS Vital Signs Date Time Temp Pulse Resp B/P (MAP) Pulse Ox O2 Delivery O2 Flow Rate FiO2 12/28/16 19:47 12/28/16 19:44 67 18 98 Room Air 12/28/16 18:05 97.5 Orders Orders Spine, Lumbar - Ltd (Ap & Lat) (12/28/16 ) Acetamin-Hydrocod 325-5 Mg (Myrtle 5-325 (12/28/16 18:30) MDM Medical Decision Making Medical Screen Exam Complete: Yes Emergency Medical Condition: Yes Differential Diagnosis Degenerative disc disease, osteoarthritis, radiculopathy. Narrative Course Last 24 hours Impressions Lumbar Spine X-Ray 12/28/16 0000 Signed Impressions: Service Date/Time: Wednesday, December 28, 2016 19:15 - CONCLUSION: No acute disease. Lalito Roman MD Patient ambulatory in the ED, was given Myrtle. Discussed with her at length that opiates can decrease seizure threshold and the patient with a history of seizures. She verbalized understanding and agreement. Recommended the least effective dose possible to decrease her pain and not to completely alleviated. She will be placed on steroids to help relieve any subtle inflammation. She's had an MRI with her primary care physician already and no indication for advanced imaging at this time. Discussed symptomatic management returned ED criteria. She stable for discharge. Diagnosis Primary Impression: Sciatica Qualified Codes: M54.31 - Sciatica, right side; M54.32 - Sciatica, left side Referrals: Johny Tamayo MD Med/Other Pt SpecificInfo: Prescription(s) given Scripts Hydrocodone-Acetaminophen (Myrtle) 5-325 mg Tab 1 TAB PO Q6H Y for PAIN, #10 TAB 0 Refills Prov: Sagar Troncoso MD 12/28/16 Prednisone (Prednisone) 20 Mg Tab 60 MG PO DAILY for 5 Days, #15 TAB 0 Refills Prov: Sagar Troncoso MD 12/28/16 Disposition: 01 DISCHARGE HOME Condition: Stable Sagar Troncoso MD Dec 28, 2016 18:24
[2016-12-28] MEDS ORDERED: ACETAMINOPHEN/HYDROcodone 325 MG/5 MG TAB PO ONE (18:30)
--- NOTE | 2016-12-28 19:31 | RADRPT ---
EXAM DATE/TIME: 12/28/2016 19:15 [facility] COMPARISON: SPINE LUMBAR LTD (AP & LAT), October 02, 2015, 17:36. INDICATIONS : Lumbar back pain no trauma MEDICAL HISTORY : None. SURGICAL HISTORY : None. ENCOUNTER: Initial ACUITY: 3 months PAIN SCORE: 7/10 LOCATION: Lumbar spine FINDINGS: Two view examination was performed. There are five non-rib bearing vertebral bodies. The vertebral bodies are in normal alignment without evidence of subluxation or scoliosis. The disc spaces are al ntained. The pedicles are intact. Bony mineralization is normal. No fracture is identified. CONCLUSION: No acute disease. Lalito Roman MD on December 28, 2016 at 19:29 Board Certified Radiologist. This report was verified electronically.
[2016-12-28] MEDS ORDERED: PRED20 PO (19:32)
[2016-12-28] MEDS ORDERED: NORC5TAB PO (19:32)
[2016-12-28 19:44] VITALS: BP 161/96; PULSE 67; RESP 18; O2SAT 98
== END 2016-12-28 20:11 | disposition home or self-care (01) ==
LOC: NEPC 17:14
DX: M54.41 Lumbago with sciatica, right side (principal); M54.42 Lumbago with sciatica, left side
CPT/HCPCS: 72100; 99284

== ENCOUNTER 2017-01-05 06:08 | Emergency (ER) | payer MEDICARE, OTHER ==
[~2017-01-05] VITALS: Ht 162.6 cm; Wt 59.1 kg
[~2017-01-05 06:08] MED LIST changes: +HYDR-3799 PO; -HYDR10TA23 PO; +NORC5TAB PO; -OMEP40CA2 PO; +PRED20 PO; +VITA100021 PO
[2017-01-05 06:13] VITALS: BP 158/97; PULSE 77; RESP 22; TEMP 97.8; O2SAT 99
[2017-01-05] MEDS ORDERED: PROT40TA PO (06:21)
[2017-01-05] MEDS ORDERED: SODIUM CHLOR 0.9% 1000 ML INJ 1,000 ML IV SCH (07:46)
[2017-01-05] MEDS ORDERED: MORPHINE SULFATE 4 MG/ML INJ IV PUSH ONE (08:00)
[2017-01-05] MEDS ORDERED: SODIUM CHLORIDE 0.9% FLUSH 10 ML FLUSH IV FLUSH PRN (08:00)
[2017-01-05] MEDS ORDERED: ONDANSETRON HCL 4 MG/2 ML VIAL IVP ONE (08:00)
[2017-01-05 08:25] LABS: AUTOMATED NEUTROPHIL # 6.8 TH/MM3 (1.8-7.7); BASOPHIL # 0.1 TH/MM3 (0-0.2); BASOPHIL % 0.6 % (0.0-2.0); EOSINOPHIL # 0.1 TH/MM3 (0-0.4); EOSINOPHIL % 1.4 % (0.0-4.0); HEMATOCRIT 39.8 % (35.0-46.0); HEMO FLAGS DIFF FINAL; LYMPH % 26.2 % (9.0-44.0); LYMPHOCYTE # 2.8 TH/MM3 (1.0-4.8); MEAN CELL VOLUME 89.6 FL (80.0-100.0); MEAN CORPUSCULAR HEMOGLOBIN 30.6 PG (27.0-34.0); MEAN CORPUSCULAR HGB CONC 34.1 % (32.0-36.0); MONO % 7.3 % (0.0-8.0); NEUT % 64.5 % (16.0-70.0); PLATELET COUNT 268 TH/MM3 (150-450); RED BLOOD COUNT 4.44 MIL/MM3 (4.00-5.30); RED CELL DISTRIBUTION WIDTH 13.9 % (11.6-17.2); WHITE BLOOD COUNT 10.6 TH/MM3 (4.0-11.0)
[2017-01-05 08:26] LABS: BLOOD, URINE NEG (NEG); COMMENT (UR) CULT NOT INDICATED; CULTURE IF INDICATED CULT NOT INDICATED; GLUCOSE,URINE NEG (NEG); KETONE, URINE NEG (NEG); MUCUS URINE FEW /lpf (OCC); NITRITE,URINE NEG (NEG); SQUAMOUS EPITHELIAL CELL URINE <1 /hpf (0-5); URINE COLOR LIGHT-YELLOW (YELLW/STRAW)
[2017-01-05 08:34] VITALS: RESP 18
[2017-01-05 08:36] VITALS: O2SAT 96
--- NOTE | 2017-01-05 08:44 | PD ---
HPI Chief Complaint: Pain: Acute or Chronic Time Seen by Provider: 07:15 Travel History International Travel<30 days: No Contact w/Intl Traveler<30days: No Traveled to known affect area: No History of Present Illness HPI This is a 56-year-old female who presents to the emergency department with right upper quadrant abdominal pain that started yesterday, constant, severe, associated with multiple episodes of vomiting, feeling like a pressure-like pain in her upper abdomen. She denies any fevers or chills. She's not been able to eat or drink anything for 2 days. She denies any diarrhea. She denies any dysuria or hematuria. She's never had pain like this before. She has a history of an appendectomy. She also is reporting some neck pain ever since she had onset of the abdominal pain. PFSH Past Medical History Anemia: Yes Arthritis: Yes Autoimmune Disease: No Heart Rhythm Problems: No Cancer: No Cardiovascular Problems: Yes (HTN) High Cholesterol: Yes Chest Pain: No Congestive Heart Failure: No Cerebrovascular Accident: No Diabetes: No Diminished Hearing: No Endocrine: No Gastrointestinal Disorders: Yes (Hernia repair ) GERD: Yes Genitourinary: No Headaches: Yes Hiatal Hernia: Yes Hypertension: Yes Immune Disorder: No Implanted Vascular Access Dvce: No Musculoskeletal: Yes Neurologic: Yes Psychiatric: No Reproductive: No Respiratory: No Immunizations Current: No Migraines: Yes Pneumonia: Yes Seizures: Yes Ulcer: Yes Tetanus Vaccination: > 5 Years Influenza Vaccination: Yes PNEUMOCCOCAL Vaccine (Year): 2010 ?: Not Menopausal: Yes : 1 Para: 1 Tubal Ligation: Yes Past Surgical History Abdominal Surgery: Yes ( LEFT INGUINAL HERNIA REPAIR) Appendectomy: Yes Cardiac Surgery: No Section: Yes (x 1) Ear Surgery: No Endocrine Surgery: No Eye Surgery: No Genitourinary Surgery: No Gynecologic Surgery: Yes () Neurologic Surgery: No Oral Surgery: No Pacemaker: No Thoracic Surgery: No Other Surgery: Yes (appendix,,) Social History Alcohol Use: No Tobacco Use: No Substance Use: No Allergies-Medications (Allergen,Severity, Reaction): Coded Allergies: ketorolac (Unverified Allergy, Severe, HIVES, 12/28/16) sumatriptan (Unverified Allergy, Severe, HIVES, 12/28/16) aspirin (Unverified Allergy, Mild, AGGRAVATES ULCERS, 12/28/16) Reported Meds & Prescriptions Reported Meds & Active Scripts Active [place] (Hydrocodone-Acetaminophen) 5-325 mg Tab 1 Tab PO Q6H PRN Metoprolol Tartrate 25 Mg Tab 25 Mg PO DAILY Reported Protonix (Pantoprazole Sodium) 40 Mg Tab 40 Mg PO DAILY Vitamin B-12 (Cyanocobalamin) 1,000 Mcg Subl 50 Mcg PO BID Hydralazine HCl 25 Mg Tablet 10 Mg PO Q6HR Depakote DR (Divalproex Sodium) 500 Mg Tabdr 500 Mg PO TID Amlodipine (Amlodipine Besylate) 10 Mg Tab 10 Mg PO DAILY Clonidine (Clonidine HCl) 0.2 Mg Tab 0.2 Mg PO BID Tegretol (Carbamazepine) 200 Mg Tab 200 Mg PO TID Review of Systems Except as stated in HPI: all other systems reviewed are Neg Physical Exam Narrative GENERAL:Well appearing, no acute distress SKIN: Focused skin assessment warm and dry. HEAD: Atraumatic. Normocephalic. EYES: Pupils equal and round. No injection or drainage. ENT: Moist mucous membranes NECK: Trachea midline. CARDIOVASCULAR: Regular rate and rhythm. No murmur appreciated. RESPIRATORY: Clear to auscultation. Breath sounds equal bilaterally. GASTROINTESTINAL: Abdomen soft, tender to palpation in the right upper quadrant with involuntary guarding. MUSCULOSKELETAL: No obvious deformities. NEUROLOGICAL: Awake and alert. No obvious cranial nerve deficits. Moving all extremities. PSYCHIATRIC: Tearful Data Data Last Documented VS Vital Signs Date Time Temp Pulse Resp B/P (MAP) Pulse Ox O2 Delivery O2 Flow Rate FiO2 01/05/17 08:36 96 Room Air 01/05/17 08:34 18 01/05/17 06:13 97.8 77 158/97 (117) Orders Orders Complete Blood Count With Diff (01/05/17 07:46) Comprehensive Metabolic Panel (01/05/17 07:46) Lipase (01/05/17 07:46) Urinalysis - C+S If Indicated (01/05/17 07:46) Us Abdomen Gallbladder (01/05/17 ) Iv Access Insert/Monitor (01/05/17 07:46) Ecg Monitoring (01/05/17 07:46) Oximetry (01/05/17 07:46) Ondansetron Inj (Zofran Inj) (01/05/17 08:00) Sodium Chlor 0.9% 1000 Ml Inj (Ns 1000 M (01/05/17 07:46) Sodium Chloride 0.9% Flush (Ns Flush) (01/05/17 08:00) Morphine Inj (Morphine Inj) (01/05/17 08:00) Ct Abd/Pel W Iv Contrast(Rout) (01/05/17 ) Iohexol 350 Inj (Omnipaque 350 Inj) (01/05/17 10:29) Labs Laboratory Tests Test 01/05/17 08:10 White Blood Count 10.6 TH/MM3 Red Blood Count 4.44 MIL/MM3 Hemoglobin 13.6 GM/DL Hematocrit 39.8 % Mean Corpuscular Volume 89.6 FL Mean Corpuscular Hemoglobin 30.6 PG Mean Corpuscular Hemoglobin Concent 34.1 % Red Cell Distribution Width 13.9 % Platelet Count 268 TH/MM3 Mean Platelet Volume 9.8 FL Neutrophils (%) (Auto) 64.5 % Lymphocytes (%) (Auto) 26.2 % Monocytes (%) (Auto) 7.3 % Eosinophils (%) (Auto) 1.4 % Basophils (%) (Auto) 0.6 % Neutrophils # (Auto) 6.8 TH/MM3 Lymphocytes # (Auto) 2.8 TH/MM3 Monocytes # (Auto) 0.8 TH/MM3 Eosinophils # (Auto) 0.1 TH/MM3 Basophils # (Auto) 0.1 TH/MM3 CBC Comment DIFF FINAL Differential Comment Urine Color LIGHT-YELLOW Urine Turbidity CLEAR Urine pH 7.0 Urine Specific [place] 1.011 Urine Protein NEG mg/dL Urine Glucose (UA) NEG mg/dL Urine Ketones NEG mg/dL Urine Occult Blood NEG Urine Nitrite NEG Urine Bilirubin NEG Urine Urobilinogen LESS THAN 2.0 MG/DL Urine Leukocyte Esterase NEG Urine RBC 1 /hpf Urine WBC 1 /hpf Urine Squamous Epithelial Cells <1 /hpf Urine Mucus FEW /lpf Microscopic Urinalysis Comment CULT NOT INDICATED Blood Urea Nitrogen 13 MG/DL Creatinine 0.71 MG/DL Random Glucose 98 MG/DL Total Protein 7.3 GM/DL Albumin 3.5 GM/DL Calcium Level 8.5 MG/DL Alkaline Phosphatase 135 U/L Aspartate Amino Transf (AST/SGOT) 16 U/L Alanine Aminotransferase (ALT/SGPT) 37 U/L Total Bilirubin 0.2 MG/DL Sodium Level 140 MEQ/L Potassium Level 3.5 MEQ/L Chloride Level 107 MEQ/L Carbon Dioxide Level 26.3 MEQ/L Anion Gap 7 MEQ/L Estimat Glomerular Filtration Rate 85 ML/MIN Lipase 228 U/L MDM Medical Decision Making Medical Screen Exam Complete: Yes Emergency Medical Condition: Yes Interpretation(s) afebrile, no tachycardia, hypertension no leukocytosis electrolytes within normal limits lipase normal urinalysis negative for infection ct abd pelvis normal gallbladder us negative Differential Diagnosis Cholelithiasis, cholecystitis, gastritis, ulcer, appendicitis, pancreatitis Narrative Course This is a 56-year-old female who presents to the emergency department with abdominal pain predominantly in the right upper quadrant. Labs are reassuring. Ultrasound of the gallbladder was reassuring and CT abdomen and pelvis is reassuring. Patient will be discharged, it is possible that some of her presentation is the setting of opiate dependence. If her pain continues she should follow up for a HIDA scan as an outpatient. Diagnosis Primary Impression: Abdominal pain Qualified Codes: R10.11 - Right upper quadrant pain Patient Instructions: General Instructions Additional Instructions: If you develop severe or worsening abdominal pain, fever>100.4, persistent vomiting or inability to eat or drink return to the emergency department immediately. Follow up with your primary care physician if her pain is not improved and consider getting a HIDA scan to further check her gallbladder Med/Other Pt SpecificInfo: No Change to Meds Disposition: 01 DISCHARGE HOME Condition: Stable Fernanda Lamebrt MD Jan 05, 2017 08:44
[2017-01-05 08:49] LABS: ALKALINE PHOSPHATASE 135 U/L (45-117); TOTAL BILIRUBIN ADULT 0.2 MG/DL (0.2-1.0)
[2017-01-05 08:52] LABS: ALT (GPT) 37 U/L (10-53); ANION GAP 7 MEQ/L (5-15); AST (GOT) 16 U/L (15-37); BICARBONATE 26.3 MEQ/L (21.0-32.0); BLOOD UREA NITROGEN 13 MG/DL (7-18); CHLORIDE 107 MEQ/L (98-107); GLOMERULAR FILTRATION RATE 85 ML/MIN (>89); POTASSIUM 3.5 MEQ/L (3.5-5.1); SODIUM (NA) 140 MEQ/L (136-145)
--- NOTE | 2017-01-05 09:35 | RADRPT ---
EXAM DATE/TIME: 01/05/2017 08:46 [facility] COMPARISON: No previous studies available for comparison. INDICATIONS : Right upper quadrant pain. MEDICAL HISTORY : Hypertension. Hypercholesterolemia. Ulcer. Pneumonia. SURGICAL HISTORY : section. Tubal ligation. Appendectomy. Left unguinal hernia repair. ENCOUNTER: Initial ACUITY: 2 days PAIN SCORE: 9/10 LOCATION: Right upper quadrant MEASUREMENTS: LIVER: 13.7 cm length COMMON DUCT: 3 mm RIGHT KIDNEY: 9.9 x 4.7 x 5.3 cm FINDINGS: LIVER: Normal echotexture without focal lesion or ductal dilatation. The portal system is patent. There is n o evidence of ascites. COMMON DUCT: No intraluminal mass or stone visualized. GALLBLADDER: Contains no stones, demonstrates no wall thickening or pericholecystic fluid. PANCREAS: The visualized portions are within normal limits. RIGHT KIDNEY: No evidence of hydronephrosis, stone, or mass. CONCLUSION: No evidence of gallstones or biliary tract obstruction. Chinedu Zarate MD on January 05, 2017 at 9:33 Board Certified Radiologist. This report was verified electronically.
[2017-01-05] MEDS ORDERED: IOHEXOL 350 MG/ML 10 ML VIAL (for RAD DIAG) IVCONTRAST ONE (10:29)
--- NOTE | 2017-01-05 10:40 | RADRPT ---
EXAM DATE/TIME: 01/05/2017 10:26 [facility] COMPARISON: CT ABDOMEN & PELVIS W CONTRAST, August 05, 2016, 17:44. INDICATIONS : Upper abdominal pain, nausea. IV CONTRAST: 75 cc Omnipaque 350 (iohexol) IV ORAL CONTRAST: No oral contrast ingested. RADIATION DOSE: 5.87 CTDIvol (mGy) MEDICAL HISTORY : Hypertension. Cardiovascular disease Gastroesophageal reflux disease.Seizures, headaches. SURGICAL HISTORY : Appendectomy. Hernia repair. ENCOUNTER: Initial ACUITY: 1 day PAIN SCALE: 6/10 LOCATION: Bilateral upper quadrant TECHNIQUE: Volumetric scanning of the abdomen and pelvis was performed. Using automated exposure control and ad justment of the mA and/or kV according to patient size, radiation dose was kept as low as reasonably achievable to obtain optimal diagnostic quality images. DICOM format image data is available electro nically for review and comparison. FINDINGS: LOWER LUNGS: Stable tiny 4 mm pleural-based nodule in the right lung base. Otherwise the lung bases remain clear. LIVER: Homogeneous density without lesion. There is no dilation of the biliary tree. No calcified gallston es. SPLEEN: Normal size without lesion. PANCREAS: Within normal limits. KIDNEYS: Normal in size and shape. There is no mass, stone or hydronephrosis. ADRENAL GLANDS: Within normal limits. VASCULAR: There is no aortic aneurysm. BOWEL/MESENTERY: The stomach, small bowel, and colon demonstrate no acute abnormality. There is no free intraperitone al air or fluid. No inflammatory changes. ABDOMINAL WALL: Within normal limits. RETROPERITONEUM: There is no lymphadenopathy. BLADDER: No wall thickening or mass. REPRODUCTIVE: Within normal limits. INGUINAL: There is no lymphadenopathy or hernia. MUSCULOSKELETAL: Within normal limits for patient age. No new or significant changes compared to 08/05/2016. CONCLUSION: 1. Stable 4 mm pleural-based pulmonary nodule right lung base. 2. Stable CT scan of the abdomen and pelvis compared to the prior study. Chinedu Zarate MD on January 05, 2017 at 10:36 Board Certified Radiologist. This report was verified electronically.
== END 2017-01-05 11:18 | disposition home or self-care (01) ==
LOC: NEPC 06:08
DX: R10.11 Right upper quadrant pain (principal); I10 Essential (primary) hypertension; M54.2 Cervicalgia
CPT/HCPCS: 74177; 76705; 80053; 81001; 83690; 85025; 96361; 96374; 96375; 99285; J2270; J2405; J7030; Q9967

== ENCOUNTER 2017-03-05 10:28 | Emergency (ER) | payer MEDICARE, OTHER ==
[~2017-03-05] VITALS: Ht 134.6 cm; Wt 62.0 kg
[~2017-03-05 10:28] MED LIST changes: -PRED20 PO; +PROT40TA PO
[2017-03-05 10:29] VITALS: BP 141/98; PULSE 85; RESP 14; TEMP 98.2; O2SAT 98
--- NOTE | 2017-03-05 10:41 | PD ---
HPI Chief Complaint: Back/ Neck Pain or Injury Time Seen by Provider: 10:36 Travel History International Travel<30 days: No Contact w/Intl Traveler<30days: No Traveled to known affect area: No History of Present Illness HPI 56 YO F presents to the ED for evaluation of 10/31 back pain, radiating down bilateral legs. Chronic in nature. Pains greater on the left and right. The patient states that she has a history of sciatica and bulging discs. She states that her doctors have recommended surgery but she is afraid. She denies numbness, tingling, weakness, limitations to range of motion of the extremities , saddle anesthesia, urinary or fecal incontinence. She denies any change to the quality of her pain. She states that she's been taking her pain medications as prescribed. However she states that her last does of pain meds was 3 days ago. She is under pain management contract with Dr. Solo. [facility] Past Medical History Anemia: Yes Arthritis: Yes Autoimmune Disease: No Heart Rhythm Problems: No Cancer: No Cardiovascular Problems: Yes (HTN) High Cholesterol: Yes Chest Pain: No Congestive Heart Failure: No Cerebrovascular Accident: No Diabetes: No Diminished Hearing: No Endocrine: No Gastrointestinal Disorders: Yes (Hernia repair ) GERD: Yes Genitourinary: No Headaches: Yes Hiatal Hernia: Yes Hypertension: Yes Immune Disorder: No Implanted Vascular Access Dvce: No Musculoskeletal: Yes Neurologic: Yes Psychiatric: No Reproductive: No Respiratory: No Immunizations Current: No Migraines: Yes Pneumonia: Yes Seizures: Yes Ulcer: Yes PNEUMOCCOCAL Vaccine (Year): 2010 ?: Not Menopausal: Yes : 1 Para: 1 Tubal Ligation: Yes Past Surgical History Abdominal Surgery: Yes ( LEFT INGUINAL HERNIA REPAIR) Appendectomy: Yes Cardiac Surgery: No Section: Yes (x 1) Ear Surgery: No Endocrine Surgery: No Eye Surgery: No Genitourinary Surgery: No Gynecologic Surgery: Yes () Neurologic Surgery: No Oral Surgery: No Pacemaker: No Thoracic Surgery: No Other Surgery: Yes (appendix,,) Social History Alcohol Use: No Tobacco Use: No Substance Use: No Allergies-Medications (Allergen,Severity, Reaction): Coded Allergies: ketorolac (Unverified Allergy, Severe, HIVES, 03/05/17) sumatriptan (Unverified Allergy, Severe, HIVES, 03/05/17) aspirin (Unverified Allergy, Mild, AGGRAVATES ULCERS, 03/05/17) Reported Meds & Prescriptions Reported Meds & Active Scripts Active [place] (Hydrocodone-Acetaminophen) 5 Mg-325 Mg Tab 1 Tab PO Q6H PRN Metoprolol Tartrate 25 Mg Tab 25 Mg PO DAILY Reported Protonix (Pantoprazole Sodium) 40 Mg Tab 40 Mg PO DAILY Vitamin B-12 (Cyanocobalamin) 1,000 Mcg Subl 50 Mcg PO BID Hydralazine HCl 25 Mg Tablet 10 Mg PO Q6HR Depakote DR (Divalproex Sodium) 500 Mg Tabdr 500 Mg PO TID Amlodipine (Amlodipine Besylate) 10 Mg Tab 10 Mg PO DAILY Clonidine (Clonidine HCl) 0.2 Mg Tab 0.2 Mg PO BID Tegretol (Carbamazepine) 200 Mg Tab 200 Mg PO TID Review of Systems Except as stated in HPI: all other systems reviewed are Neg Physical Exam Narrative GENERAL: Well-nourished, well-developed white female no acute distress. SKIN: Focused skin assessment warm/dry. HEAD: Normocephalic. EYES: No scleral icterus. No injection or drainage. NECK: Supple, trachea midline. No JVD or lymphadenopathy. CARDIOVASCULAR: Regular rate and rhythm without murmurs, gallops, or rubs. RESPIRATORY: Breath sounds equal bilaterally. No accessory muscle use. GASTROINTESTINAL: Abdomen soft, non-tender, nondistended. MUSCULOSKELETAL: No cyanosis, or edema. 5/5 strength of dorsiflexion, plantar flexion, knee and hip flexion bilaterally. Patient walks with a normal gait. BACK: Nontender without obvious deformity. No CVA tenderness. Tender to palpation of the left sciatic notch. Data Data Last Documented VS Vital Signs Date Time Temp Pulse Resp B/P (MAP) Pulse Ox O2 Delivery O2 Flow Rate FiO2 03/05/17 11:08 03/05/17 10:29 98.2 85 14 98 Orders Orders Oxycodone-Acetamin 7.5-325 Mg (Percocet (03/05/17 11:00) Ed Discharge Order (03/05/17 10:55) MDM Medical Decision Making Medical Screen Exam Complete: Yes Emergency Medical Condition: Yes Differential Diagnosis Acute on chronic back pain versus chronic back pain versus discitis versus other Narrative Course 56 YO F presents to the ED for evaluation of 10/31 back pain, radiating down bilateral legs. Chronic in nature. Pains greater on the left and right. The patient states that she has a history of sciatica and bulging discs. She states that her doctors have recommended surgery but she is afraid. She denies numbness, tingling, weakness, limitations to range of motion of the extremities , saddle anesthesia, urinary or fecal incontinence. She states that she's been taking her pain medications as prescribed. However she states that her last does of pain meds was 3 days ago. Vitals reviewed. Physical exam is reassuring. Equal strength in the bilateral lower extremities noted. Patient was prescribed 5 mg [place], first dose administered in the ED. She is instructed to take the medications as prescribed, follow up with Dr. Calvin. She was cautioned that is it unlikely that she'll be able to receive narcotic pain medications through the Emergency Department in the future. She indicated understanding. She is stable and discharged home. Diagnosis Primary Impression: Acute exacerbation of chronic low back pain Additional Impression: Sciatica Qualified Codes: M54.31 - Sciatica, right side; M54.32 - Sciatica, left side Referrals: Neurologist Pain Management Patient Instructions: General Instructions, Sciatica (ED) Additional Instructions: Rest, hydrate. Mixture of rest and activity is best for back pain. It's unlikely that he'll be able to receive narcotic pain medications in the emergency room for this again. Please follow up with your pain management provider for better control of your chronic pain. Return to ED for any urgent or emergent medical condition. Med/Other Pt SpecificInfo: Prescription(s) given Scripts Hydrocodone-Acetaminophen ([place]) 5 Mg-325 Mg Tab 1 TAB PO Q6H Y for PAIN, #15 TAB 0 Refills Prov: Kourtney Bass James DO 03/05/17 Disposition: 01 DISCHARGE HOME Condition: Stable Christine Tran Mar 05, 2017 10:41
[2017-03-05] MEDS ORDERED: NORC5TAB PO (10:51)
[2017-03-05] MEDS ORDERED: oxyCODONE/ACETAMINOPHEN 7.5 MG/325 MG TAB PO ONE (11:00)
== END 2017-03-05 11:09 | disposition home or self-care (01) ==
LOC: NEPK 10:28
DX: M54.42 Lumbago with sciatica, left side (principal); G89.29 Other chronic pain; D64.9 Anemia, unspecified; I10 Essential (primary) hypertension; M19.90 Unspecified osteoarthritis, unspecified site; E78.00 Pure hypercholesterolemia, unspecified; K21.9 Gastro-esophageal reflux disease without esophagitis; R56.9 Unspecified convulsions; Z79.899 Other long term (current) drug therapy
CPT/HCPCS: 99283

== ENCOUNTER 2017-06-07 13:12 | Emergency (ER) | payer MEDICARE, OTHER ==
[~2017-06-07] VITALS: Ht 142.2 cm; Wt 70.0 kg
[2017-06-07 13:21] VITALS: BP 155/91; PULSE 102; RESP 16; TEMP 97.2
[2017-06-07] MEDS ORDERED: carBAMazepine 200 MG TAB PO ONE (14:00)
[2017-06-07] MEDS ORDERED: DIVALPROEX SODIUM E.R. 500 MG TAB PO ONE (14:00)
[2017-06-07] MEDS ORDERED: DEPA500T PO (15:17)
[2017-06-07] MEDS ORDERED: TEGR200T PO (15:17)
--- NOTE | 2017-06-07 15:18 | PD ---
HPI . Seizure Chief Complaint: Seizure Time Seen by Provider: 13:46 Travel History International Travel<30 days: No Contact w/Intl Traveler<30days: No Traveled to known affect area: No History of Present Illness HPI This patient presents stating that she has had a seizure daily for the last 3 days. She states that she ran out of her seizure medication approximately 2 weeks ago. She is supposed to be taking Tegretol and Depakote. She is also complaining with chronic pain. She states that she sees a pain clinic for her chronic pain. She has not suffered any injury as the result of her seizure. She told me that she has an aura prior to the seizures, becomes diaphoretic and that has a seizure. She states that she has been on the same seizure medications for years. Seizure activity is mild. The modifying factor is that she is out of her medications. Onset was 3 days ago. Timing is once daily. PFSH Past Medical History Anemia: Yes Arthritis: Yes Autoimmune Disease: No Heart Rhythm Problems: No Cancer: No Cardiovascular Problems: Yes (HTN) High Cholesterol: Yes Chest Pain: No Congestive Heart Failure: No Cerebrovascular Accident: No Diabetes: No Diminished Hearing: No Endocrine: No Gastrointestinal Disorders: Yes (Hernia repair ) GERD: Yes Genitourinary: No Headaches: Yes Hiatal Hernia: Yes Hypertension: Yes Immune Disorder: No Implanted Vascular Access Dvce: No Musculoskeletal: Yes Neurologic: Yes Psychiatric: No Reproductive: No Respiratory: No Immunizations Current: No Migraines: Yes Pneumonia: Yes Seizures: Yes Ulcer: Yes PNEUMOCCOCAL Vaccine (Year): 2010 ?: Not LMP: [place] Menopausal: Yes : 1 Para: 1 Tubal Ligation: Yes Past Surgical History Abdominal Surgery: Yes ( LEFT INGUINAL HERNIA REPAIR) Appendectomy: Yes Cardiac Surgery: No Section: Yes (x 1) Ear Surgery: No Endocrine Surgery: No Eye Surgery: No Genitourinary Surgery: No Gynecologic Surgery: Yes () Neurologic Surgery: No Oral Surgery: No Pacemaker: No Thoracic Surgery: No Other Surgery: Yes (appendix,,) Social History Alcohol Use: No Tobacco Use: No Substance Use: No Allergies-Medications (Allergen,Severity, Reaction): Coded Allergies: ketorolac (Unverified Allergy, Severe, HIVES, 03/05/17) sumatriptan (Unverified Allergy, Severe, HIVES, 03/05/17) aspirin (Unverified Allergy, Mild, AGGRAVATES ULCERS, 03/05/17) Reported Meds & Prescriptions Reported Meds & Active Scripts Active Depakote DR (Divalproex Sodium) 500 Mg Tabdr 500 Mg PO TID Tegretol (Carbamazepine) 200 Mg Tab 200 Mg PO TID [place] (Hydrocodone-Acetaminophen) 5 Mg-325 Mg Tab 1 Tab PO Q6H PRN Metoprolol Tartrate 25 Mg Tab 25 Mg PO DAILY Reported Protonix (Pantoprazole Sodium) 40 Mg Tab 40 Mg PO DAILY Vitamin B-12 (Cyanocobalamin) 1,000 Mcg Subl 50 Mcg PO BID Hydralazine HCl 25 Mg Tablet 10 Mg PO Q6HR Amlodipine (Amlodipine Besylate) 10 Mg Tab 10 Mg PO DAILY Clonidine (Clonidine HCl) 0.2 Mg Tab 0.2 Mg PO BID Review of Systems Except as stated in HPI: all other systems reviewed are Neg Musculoskeletal: Positive: Pain (chronic pain) Neurologic: Positive: Seizures Physical Exam Narrative GENERAL: Awake and alert. SKIN: warm/dry. HEAD: Normocephalic. Receiving hairline. EYES: Pupils equal and round. No scleral icterus. No injection or drainage. ENT: No nasal bleeding or discharge. Mucous membranes pink and moist. NECK: Trachea midline. Full range of motion without pain.. CARDIOVASCULAR: Regular rate and rhythm. RESPIRATORY: No accessory muscle use. Clear to auscultation. Breath sounds equal bilaterally. MUSCULOSKELETAL: No obvious deformities. NEUROLOGICAL: Awake and alert. No obvious cranial nerve deficits. Motor grossly within normal limits. Normal speech. PSYCHIATRIC: Appropriate mood and affect; insight and judgment normal. Data Data Last Documented VS Vital Signs Date Time Temp Pulse Resp B/P (MAP) Pulse Ox O2 Delivery O2 Flow Rate FiO2 06/07/17 14:08 18 Room Air 06/07/17 13:21 97.2 102 155/91 (112) Orders Orders Carbamazepine (Tegretol) (06/07/17 13:46) Valproic Acid (Depakene) (06/07/17 13:46) Carbamazepine (Tegretol) (06/07/17 14:00) Divalproex Er (Depakote Er) (06/07/17 14:00) Labs Laboratory Tests Test 06/07/17 15:05 Valproic Acid (Depakene) Level 45 MCG/ML Carbamazepine (Tegretol) Level 1.1 MCG/ML MDM Medical Decision Making Medical Screen Exam Complete: Yes Emergency Medical Condition: Yes Differential Diagnosis Differential diagnosis of seizure includes but is not limited to epilepsy, electrolyte abnormality, previous stroke, closed head injury Narrative Course This patient presents complaining with seizures daily for the last 3 days. She reports that she is out of her usual medication. She is normally on Tegretol and Depakote. I have ordered her usual dose of each. Tegretol level is 1.1 with therapeutic being 4-12 Depakote level is 45 with therapeutic being 50-100. I have refilled both these medications. Diagnosis Primary Impression: Seizure disorder Patient Instructions: General Instructions, Recurrent Seizures in Adults (DC) Med/Other Pt SpecificInfo: Prescription(s) given Scripts Divalproex DR (Depakote DR) 500 Mg Tabdr 500 MG PO TID for Control Seizures, #60 TAB 0 Refills Prov: Juanis Woo MD 06/07/17 Carbamazepine (Tegretol) 200 Mg Tab 200 MG PO TID, #60 TAB 0 Refills Prov: Juanis Woo MD 06/07/17 Disposition: 01 DISCHARGE HOME Condition: Stable Juanis Woo MD Jun 07, 2017 15:18
[2017-06-07 15:51] LABS: CARBAMAZEPINE (TEGRETOL) 1.1 MCG/ML (4.0-12.0)
== END 2017-06-07 16:11 | disposition home or self-care (01) ==
LOC: NEPD 13:12
DX: G40.909 Epilepsy, unspecified, not intractable, without status epilepticus (principal); G89.29 Other chronic pain; D64.9 Anemia, unspecified; M19.90 Unspecified osteoarthritis, unspecified site; I10 Essential (primary) hypertension; E78.00 Pure hypercholesterolemia, unspecified; K21.9 Gastro-esophageal reflux disease without esophagitis; Z79.899 Other long term (current) drug therapy; Z88.6 Allergy status to analgesic agent
CPT/HCPCS: 80156; 80164; 99283

== ENCOUNTER 2017-06-09 17:11 | Emergency (ER) | payer MEDICARE, OTHER ==
[2017-06-09 17:26] VITALS: BP 157/90; PULSE 114; RESP 18; TEMP 98.5; O2SAT 98
[2017-06-09] MEDS ORDERED: ACETAMINOPHEN/HYDROcodone 325 MG/10 MG TAB PO ONE (18:15)
[2017-06-09] MEDS ORDERED: ZOFR4TAB3 SL (18:22)
--- NOTE | 2017-06-09 18:22 | PD ---
HPI Chief Complaint: Pain: Acute or Chronic Time Seen by Provider: 17:49 Travel History International Travel<30 days: No Contact w/Intl Traveler<30days: No Traveled to known affect area: No History of Present Illness HPI 56 YO F presents to the ED requesting medication refill. The patient complains of chronic neck and back pain, no changes today. No new injury. She states that she is under pain management contract with Dr. Calvin. She states that she takes 7.5 mg Cunningham every 6 hours when necessary for pain. She states that she is been out of medications for 3 days. On presentation she complains of nausea. PFSH Past Medical History Anemia: Yes Arthritis: Yes Autoimmune Disease: No Heart Rhythm Problems: No Cancer: No Cardiovascular Problems: Yes (HTN) High Cholesterol: Yes Chest Pain: No Congestive Heart Failure: No Cerebrovascular Accident: No Diabetes: No Diminished Hearing: No Endocrine: No Gastrointestinal Disorders: Yes (Hernia repair ) GERD: Yes Genitourinary: No Headaches: Yes Hiatal Hernia: Yes Hypertension: Yes Immune Disorder: No Implanted Vascular Access Dvce: No Musculoskeletal: Yes Neurologic: Yes Psychiatric: No Reproductive: No Respiratory: No Immunizations Current: No Migraines: Yes Pneumonia: Yes Seizures: Yes Ulcer: Yes PNEUMOCCOCAL Vaccine (Year): 2010 Menopausal: Yes : 1 Para: 1 Tubal Ligation: Yes Past Surgical History Abdominal Surgery: Yes ( LEFT INGUINAL HERNIA REPAIR) Appendectomy: Yes Cardiac Surgery: No Section: Yes (x 1) Ear Surgery: No Endocrine Surgery: No Eye Surgery: No Genitourinary Surgery: No Gynecologic Surgery: Yes () Neurologic Surgery: No Oral Surgery: No Pacemaker: No Thoracic Surgery: No Other Surgery: Yes (appendix,,) Social History Alcohol Use: No Tobacco Use: No Substance Use: No Allergies-Medications (Allergen,Severity, Reaction): Coded Allergies: ketorolac (Unverified Allergy, Severe, HIVES, 03/05/17) sumatriptan (Unverified Allergy, Severe, HIVES, 03/05/17) aspirin (Unverified Allergy, Mild, AGGRAVATES ULCERS, 03/05/17) Reported Meds & Prescriptions Reported Meds & Active Scripts Active Zofran Odt (Ondansetron Odt) 4 Mg Tab 4 Mg SL Q12HR PRN Depakote DR (Divalproex Sodium) 500 Mg Tabdr 500 Mg PO TID Tegretol (Carbamazepine) 200 Mg Tab 200 Mg PO TID Cunningham (Hydrocodone-Acetaminophen) 5 Mg-325 Mg Tab 1 Tab PO Q6H PRN Metoprolol Tartrate 25 Mg Tab 25 Mg PO DAILY Reported Protonix (Pantoprazole Sodium) 40 Mg Tab 40 Mg PO DAILY Vitamin B-12 (Cyanocobalamin) 1,000 Mcg Subl 50 Mcg PO BID Hydralazine HCl 25 Mg Tablet 10 Mg PO Q6HR Amlodipine (Amlodipine Besylate) 10 Mg Tab 10 Mg PO DAILY Clonidine (Clonidine HCl) 0.2 Mg Tab 0.2 Mg PO BID Review of Systems Except as stated in HPI: all other systems reviewed are Neg Physical Exam Narrative GENERAL: Well-nourished, well-developed petite white female in no acute distress. SKIN: Focused skin assessment warm/dry. HEAD: Normocephalic. EYES: No scleral icterus. No injection or drainage. NECK: Supple, trachea midline. No JVD or lymphadenopathy. No midline tenderness to palpation. No limitations to ROM. CARDIOVASCULAR: Regular rate and rhythm without murmurs, gallops, or rubs. RESPIRATORY: Breath sounds equal bilaterally. No accessory muscle use. GASTROINTESTINAL: Abdomen soft, non-tender, nondistended. MUSCULOSKELETAL: No cyanosis, or edema. NEUROLOGICAL: Awake and alert. Cranial nerves II through XII intact. Motor and sensory grossly within normal limits. Five out of 5 muscle strength in all muscle groups. Normal speech. BACK: Nontender without obvious deformity. No CVA tenderness. Data Data Last Documented VS Vital Signs Date Time Temp Pulse Resp B/P (MAP) Pulse Ox O2 Delivery O2 Flow Rate FiO2 06/09/17 17:26 98.5 114 18 157/90 (112) 98 Orders Orders Acetamin-Hydrocod 325-10 Mg (Cunningham 10-32 (06/09/17 18:15) Ed Discharge Order (06/09/17 18:40) [facility] Medical Decision Making Medical Screen Exam Complete: Yes Emergency Medical Condition: Yes Differential Diagnosis Chronic pain versus opioid dependence versus medication refill versus other Narrative Course 56 YO F presents to the ED requesting medication refill. The patient complains of chronic neck and back pain, no changes today. No new injury reported. She states that she is under pain management contract with Dr. Calvin. She states that she takes 7.5 mg Cunningham every 6 hours when necessary for pain. She states that she is been out of medications for 3 days. On presentation she complains of nausea. Vitals reviewed. Physical exam reveals no tenderness to palpation of the midline cervical, thoracic or lumbar spine. No focal neuro deficits noted. The patient was administered 10 mg Cunningham by mouth here. She is provided a few doses of Zofran so that she may take her other at home medications without nausea and vomiting. I saw the patient with a similar situation approximately 2 months ago. At that time we talked about changes with her chronic pain medications/pain provider. I reviewed [facility]. Patient was prescribed at 90 tabs 7.5 Cunningham on 05/18/17. I explained that I could not prescribe her medications as this would void her pain medicine contract and could result in her expulsion from Dr. Calvin's practice. She is instructed to discuss that she's been misusing her medications with Dr. Calvin. She is stable and discharged home. Diagnosis Primary Impression: Chronic pain Qualified Codes: G89.29 - Other chronic pain Referrals: Pain Management Additional Instructions: Follow-up with Dr. Calvin's office as discussed. Return to the ED for any urgent or emergent medical condition. Scripts Ondansetron Odt (Zofran Odt) 4 Mg Tab 4 MG SL Q12HR Y for Nausea/Vomiting, #6 TAB 0 Refills Prov: Mark Tang MD 06/09/17 Disposition: 01 DISCHARGE HOME Condition: Stable Christine Tran Jun 09, 2017 18:21
== END 2017-06-09 18:44 | disposition home or self-care (01) ==
LOC: NED 17:11 → NEPK 18:44
DX: Z76.0 Encounter for issue of repeat prescription (principal); M54.2 Cervicalgia; M54.9 Dorsalgia, unspecified; G89.29 Other chronic pain; R11.0 Nausea; D64.9 Anemia, unspecified; I10 Essential (primary) hypertension; K21.9 Gastro-esophageal reflux disease without esophagitis; E78.00 Pure hypercholesterolemia, unspecified
CPT/HCPCS: 99281